=== PATIENT | male | born 1960 | race Caucasian/White ===

== ENCOUNTER 2021-11-24 15:25 | Inpatient (IN) | payer BC ==
[~2021-11-24] VITALS: Ht 185.4 cm; Wt 113.6 kg
[2021-11-24] MEDS ORDERED: ondansetron/PF 4mg/2ml inj IV ONE (15:45)
[2021-11-24] MEDS ORDERED: morphine 4 MG/ML inj SYRINge IV ONE (15:45)
[2021-11-24 16:17] LABS: BASOPHILS % (AUTO) 0.4 % (0-1); EOSINOPHILS # (AUTO) 0.1 X10'3 (0-0.9); EOSINOPHILS % (AUTO) 1.3 % (0-6); HEMATOCRIT 48.4 % (42.0-52.0); HEMOGLOBIN 16.6 g/dl (14.0-17.9); LYMPHOCYTES # (AUTO) 3.1 X10'3 (1.1-4.8); LYMPHOCYTES % (AUTO) 33.3 % (21-51); MEAN CORPUSCULAR HEMOGLOBIN 30.3 PG (27.0-31.0); MEAN CORPUSCULAR HGB CONC 34.3 g/dL (33.0-36.5); MEAN CORPUSCULAR VOLUME 88.3 FL (78-98); MEAN PLATELET VOLUME 9.1 FL (7.4-10.4); MONOCYTES # (AUTO) 0.9 X10'3 (0-0.9); MONOCYTES % (AUTO) 9.9 % (2-12); NEUTROPHILS # (AUTO) 5.1 X10'3 (1.8-7.7); NEUTROPHILS % (AUTO) 55.1 % (42-75); PLATELET COUNT 231 X10'3 (140-440); RED BLOOD COUNT 5.48 X10'6 (4.70-6.10); RED CELL DISTRIBUTION WIDTH 13.7 % (11.5-14.5); WHITE BLOOD COUNT 9.2 X10'3 (4.5-11.0)
[2021-11-24 16:25] LABS: D-DIMER 0.92 MG/L FEU (0-0.50)
[2021-11-24 16:28] LABS: ALANINE AMINOTRANSFERASE 170 U/L (12-78); ALBUMIN 4.1 G/DL (3.4-5.0); ALBUMIN/GLOBULIN RATIO 1.2 (1.1-1.5); ALKALINE PHOSPHATASE 122 IU/L (46-116); ANION GAP 14 (8-16); ASPARTATE AMINO TRANSFERASE 239 U/L (10-37); BILIRUBIN,TOTAL 1.7 MG/DL (0.1-1.0); BLOOD UREA NITROGEN 15 MG/DL (7-18); BUN/CREATININE RATIO 15.6 (5.4-32.0); CALCIUM 9.8 MG/DL (8.5-10.1); CHLORIDE 99 MMOL/L (99-107); CREATININE 0.96 MG/DL (0.60-1.10); GLUCOSE 210 MG/DL (70-104); POTASSIUM 3.5 MMOL/L (3.5-5.1); SODIUM 139 MMOL/L (135-145); TOTAL CARBON DIOXIDE 26.5 MMOL/L (24-32); TOTAL PROTEIN 7.5 G/DL (6.4-8.2); eGFR 79 ML/MIN
[2021-11-24 16:37] LABS: C-REACTIVE PROTEIN 0.49 MG/DL (0.0-0.5); MAGNESIUM 1.9 MG/DL (1.5-2.4)
[2021-11-24] MEDS ORDERED: ketorolac trometh. 30mg/ml inj. IV ONE (17:05)
[2021-11-24] MEDS ORDERED: NORMAL SALINE IV ONE (17:25)
[2021-11-24] MEDS ORDERED: SINCALIDE IV ONE (17:25)
[2021-11-24 17:38] LABS: LIPASE 127 U/L (73-393)
[2021-11-24] MEDS ORDERED: HYDROcodone/acetaminophen 10/325mg tab PO PRN (17:40)
[2021-11-24] MEDS ORDERED: ondansetron 4mg rapidly disintigrating tab PO PRN (17:40)
[2021-11-24] MEDS ORDERED: bisacodyl 10mg suppository rectal RC PRN (17:40)
[2021-11-24] MEDS ORDERED: acetaminophen 650mg rectal suppository RC PRN (17:40)
[2021-11-24] MEDS ORDERED: magnesium 2GM in 50ml NS 50 ML IV PRN (17:40)
[2021-11-24] MEDS ORDERED: HYDROmorphone/PF 0.2 MG/ML SYRINGE IV PRN (17:40)
[2021-11-24] MEDS ORDERED: magnesium 4gm in 100ml NS 100 ML IV PRN (17:40)
[2021-11-24] MEDS ORDERED: ondansetron/PF 4mg/2ml inj IV PRN (17:40)
[2021-11-24] MEDS ORDERED: potassium CL 10mEq/100ml bag 100 ML IV PRN (17:40)
[2021-11-24] MEDS ORDERED: mag hydrox/Alum hydrox/simeth 30ml oral suspension PO PRN (17:40)
[2021-11-24] MEDS ORDERED: HYDROcodone/acetaminophen 5mg/325mg tablet PO PRN (17:40)
[2021-11-24] MEDS ORDERED: POTASSIUM BICARB 20meq eff tab 20 MEQ TABLET.EFF PO PRN ×2 (17:40)
[2021-11-24] MEDS: normal saline 1000ml 1,000 ML IV SCH ×2 (17:40→23:19)
[2021-11-24] MEDS ORDERED: magnesium Cl slow-release 64mg tablet PO PRN (17:40)
[2021-11-24] MEDS ORDERED: magnesium hydroxide 30ml (MOM) UD suspension PO PRN (17:40)
[2021-11-24] MEDS ORDERED: HYDROmorphone inj. 0.5 MG/0.5 ML DISP.SYRIN IV PRN (17:40)
[2021-11-24] MEDS ORDERED: OMEP20CA16 PO (17:56)
[2021-11-24] MEDS ORDERED: DULA3PEN SQ (17:56)
[2021-11-24] MEDS ORDERED: LISI10TA27 PO (17:56)
[2021-11-24] MEDS ORDERED: DICL100G30 TOP (17:56)
[2021-11-24] MEDS ORDERED: ASPI81TA52 PO (17:56)
[2021-11-24] MEDS ORDERED: METF-436 PO (17:56)
[2021-11-24 18:07] LABS: APTT 21 SECONDS (22-32)
[2021-11-24] MEDS ORDERED: LORazepam 2 mg/ml vial IV PRN (18:25)
[2021-11-24] MEDS ORDERED: LORazepam 0.5 MG tablet PO PRN (18:25)
[2021-11-24] MEDS: pantoprazole 40MG/NS 100ML BAG 100 ML IV SCH (19:25)
[2021-11-24] MEDS ORDERED: normal saline 1000ml 1,000 ML IV ONE (19:35)
[2021-11-24] MEDS: K and/or MAG REPLACEMENT MC SCH (20:00)
[2021-11-24] MEDS: docusate sod 100mg capsule PO SCH (20:00)
--- NOTE | 2021-11-24 20:53 | NUR ---
Paged Dr Sepulveda. She called back and gave telephone order for hyperglycemia/hypoglycemia protocol.
[2021-11-24] MEDS ORDERED: DEXTROSE 15 GM of carb/4 tabs (each vial/BOTTLE has 4 tablets) PO PRN ×2 (20:55)
[2021-11-24] MEDS ORDERED: dextrose 50%-water 50ml dispensing syringe IV PRN ×2 (20:55)
[2021-11-24] MEDS ORDERED: glucagon, human recombinant 1mg kit SUBCUT PRN (20:55)
[2021-11-24] MEDS ORDERED: MESSAGE TO PHARMACY PO ONE (20:55)
[2021-11-24] MEDS ORDERED: temazepam 15mg capsule PO PRN (21:00)
[2021-11-24 21:09] LABS: HEMOGLOBIN A1C 7.8 % (4.5-6.2)
[2021-11-24] MEDS: insulin glargine (Lantus) pen - multi-dose SQ SCH (21:37)
--- NOTE | 2021-11-24 22:38 | NUR ---
Patient in room ED HALL13. I have received report from ZAHRA Hurt and had the opportunity to ask questions and assume patient care.
[2021-11-24] MEDS: piperacillin/tazo 3.375gm/50ml 50 ML IV SCH (23:20)
[2021-11-24 23:27] VITALS: BP 172/92
[2021-11-25 06:13] LABS: BASOPHILS % (AUTO) 0.1 % (0-1); EOSINOPHILS % (AUTO) 0.2 % (0-6); HEMATOCRIT 44.4 % (42.0-52.0); HEMOGLOBIN 15.1 g/dl (14.0-17.9); LYMPHOCYTES # (AUTO) 0.5 X10'3 (1.1-4.8); LYMPHOCYTES % (AUTO) 6.6 % (21-51); MEAN CORPUSCULAR HEMOGLOBIN 30.5 PG (27.0-31.0); MEAN CORPUSCULAR VOLUME 89.6 FL (78-98); MEAN PLATELET VOLUME 9.3 FL (7.4-10.4); MONOCYTES # (AUTO) 0.8 X10'3 (0-0.9); MONOCYTES % (AUTO) 10.1 % (2-12); NEUTROPHILS # (AUTO) 6.8 X10'3 (1.8-7.7); PLATELET COUNT 163 X10'3 (140-440); RED BLOOD COUNT 4.95 X10'6 (4.70-6.10); RED CELL DISTRIBUTION WIDTH 13.8 % (11.5-14.5); WHITE BLOOD COUNT 8.3 X10'3 (4.5-11.0)
[2021-11-25 06:14] LABS: APTT 25 SECONDS (22-32)
--- NOTE | 2021-11-25 06:19 | NUR ---
Problems reprioritized. Patient report given, questions answered & plan of care reviewed with ZAHRA Ly.
[2021-11-25 06:36] LABS: ALANINE AMINOTRANSFERASE 456 U/L (12-78); ALBUMIN 3.2 G/DL (3.4-5.0); ALKALINE PHOSPHATASE 131 IU/L (46-116); ANION GAP 11 (8-16); ASPARTATE AMINO TRANSFERASE 411 U/L (10-37); BILIRUBIN,TOTAL 4.2 MG/DL (0.1-1.0); BLOOD UREA NITROGEN 14 MG/DL (7-18); CALCIUM 8.9 MG/DL (8.5-10.1); CHLORIDE 105 MMOL/L (99-107); GLUCOSE 241 MG/DL (70-104); MAGNESIUM 1.9 MG/DL (1.5-2.4); POTASSIUM 4.1 MMOL/L (3.5-5.1); SODIUM 138 MMOL/L (135-145); TOTAL CARBON DIOXIDE 22.4 MMOL/L (24-32); eGFR 76 ML/MIN
[2021-11-25 06:37] LABS: ALBUMIN/GLOBULIN RATIO 1.1 (1.1-1.5); PHOSPHORUS 4.2 MG/DL (2.3-4.5); TOTAL PROTEIN 6.2 G/DL (6.4-8.2)
[2021-11-25] MEDS: pantoprazole 40MG/NS 100ML BAG 100 ML IV SCH (07:19)
[2021-11-25] MEDS: piperacillin/tazo 3.375gm/50ml 50 ML IV SCH ×2 (07:19→16:37)
[2021-11-25 07:20] VITALS: BP 136/77
[2021-11-25] MEDS: docusate sod 100mg capsule PO SCH ×2 (08:00→19:55)
[2021-11-25] MEDS: K and/or MAG REPLACEMENT MC SCH ×2 (08:00→20:00)
--- NOTE | 2021-11-25 08:06 | NUR ---
Discussed with patient the importance of the tests ordered today. He says that he cannot follow through with them. Discussed the PRN's that are available to help with his claustrophobia he stated that it will not help because he also has a bad back and he refuses to lay still for the duration of the procedure. Message from [employer] said that it needed to happen quickly because of the timing of injection would be another 24hrs. Discussed this with patient as well, he stated " i will not be here for another 24hrs"
[2021-11-25 10:36] VITALS: BP 139/85
--- NOTE | 2021-11-25 10:57 | NUR ---
Noted pt with T2DM, fairly well controlled with A1c 7.8%. Attempted visit with pt at bedside however pt unavailable. Written DM education with RD contact information placed in patient's chart. Will remain available. Addendum: 11/25/21 at [address] Amended: Links added.
[2021-11-25] MEDS: normal saline 1000ml 1,000 ML IV SCH ×2 (13:25→21:59)
[2021-11-25] MEDS: lisinopril 10 MG tablet PO SCH (14:00)
[2021-11-25] MEDS ORDERED: DULAGLUTIDE 3 MG SQ SCH (14:00)
[2021-11-25 14:20] VITALS: BP 154/84
--- NOTE | 2021-11-25 15:05 | NUR ---
PAGER ID: [phone] MESSAGE: [phone] Gavi Merlos: patient and his are insisting to speak with you. thank you!
--- NOTE | 2021-11-25 16:58 | NUR ---
t/c from [facility], she stated that the transfer has been denied because they do not have any staffed beds available and they do not have an open MRI.
--- NOTE | 2021-11-25 17:15 | NUR ---
PAGER ID: [phone] MESSAGE: [phone] Gavi Merlos: can patient have a diet order since he's not doing anything? thanks, tiburcio [phone]
--- NOTE | 2021-11-25 17:45 | NUR ---
Patient and notified of [facility] denial. They are now requesting to attempt the MRCP again tomorrow. Will notify
--- NOTE | 2021-11-25 17:49 | NUR ---
PAGER ID: [phone] MESSAGE: [phone] Gavi Merlos: Patient was denied transfer to [facility]. He states he would like to attempt the MRCP tomorrow. He will need a new medication ordered for the procedure tomorrow. thanks, tiburcio [phone]
[2021-11-25 18:00] VITALS: BP 150/90
--- NOTE | 2021-11-25 18:20 | NUR ---
Problems reprioritized. Patient report given, questions answered & plan of care reviewed with ZAHRA Hurt.
[2021-11-25] MEDS: insulin Lispro (HumaLOG) vial - multi-dose SQ SCH (19:52)
[2021-11-25] MEDS: metFORMIN 500mg tablet PO SCH (19:56)
[2021-11-25] MEDS: insulin glargine (Lantus) pen - multi-dose SQ SCH (21:44)
[2021-11-25 22:00] VITALS: BP 138/85
[2021-11-26] VITALS (12 sets, daily range): BP systolic 130–164; BP diastolic 70–120
[2021-11-26] MEDS: piperacillin/tazo 3.375gm/50ml 50 ML IV SCH ×3 (00:25→17:08)
[2021-11-26 06:35] LABS: BASOPHILS % (AUTO) 0.4 % (0-1); EOSINOPHILS # (AUTO) 0.2 X10'3 (0-0.9); HEMATOCRIT 42.3 % (42.0-52.0); HEMOGLOBIN 14.3 g/dl (14.0-17.9); LYMPHOCYTES % (AUTO) 19.7 % (21-51); MEAN CORPUSCULAR HEMOGLOBIN 30.6 PG (27.0-31.0); MEAN CORPUSCULAR HGB CONC 33.9 g/dL (33.0-36.5); MEAN CORPUSCULAR VOLUME 90.3 FL (78-98); MEAN PLATELET VOLUME 9.6 FL (7.4-10.4); MONOCYTES # (AUTO) 0.6 X10'3 (0-0.9); MONOCYTES % (AUTO) 10.6 % (2-12); NEUTROPHILS # (AUTO) 3.5 X10'3 (1.8-7.7); NEUTROPHILS % (AUTO) 66.3 % (42-75); PLATELET COUNT 156 X10'3 (140-440); RED BLOOD COUNT 4.69 X10'6 (4.70-6.10); RED CELL DISTRIBUTION WIDTH 13.9 % (11.5-14.5); WHITE BLOOD COUNT 5.2 X10'3 (4.5-11.0)
[2021-11-26 06:43] LABS: APTT 25 SECONDS (22-32)
[2021-11-26 06:52] LABS: ALANINE AMINOTRANSFERASE 417 U/L (12-78); ALKALINE PHOSPHATASE 130 IU/L (46-116); ANION GAP 10 (8-16); ASPARTATE AMINO TRANSFERASE 207 U/L (10-37); BILIRUBIN,TOTAL 4.6 MG/DL (0.1-1.0); BLOOD UREA NITROGEN 11 MG/DL (7-18); BUN/CREATININE RATIO 13.8 (5.4-32.0); CALCIUM 8.6 MG/DL (8.5-10.1); CHLORIDE 106 MMOL/L (99-107); GLUCOSE 161 MG/DL (70-104); PHOSPHORUS 3.5 MG/DL (2.3-4.5); POTASSIUM 3.7 MMOL/L (3.5-5.1); SODIUM 139 MMOL/L (135-145); TOTAL CARBON DIOXIDE 22.7 MMOL/L (24-32); eGFR > 90 ML/MIN
--- NOTE | 2021-11-26 06:57 | NUR ---
Problems reprioritized. Patient report given, questions answered & plan of care reviewed with KODAK Linn RN.
[2021-11-26] MEDS ORDERED: pantoprazole 40mg Tablet.DR PO SCH ×2 (07:30→08:00)
[2021-11-26] MEDS: metFORMIN 500mg tablet PO SCH ×2 (08:00→19:30)
[2021-11-26] MEDS: aspirin 81mg, enteric-coated 1 TAB TABLET.DR PO SCH (08:00)
[2021-11-26] MEDS: docusate sod 100mg capsule PO SCH ×2 (08:00→19:30)
[2021-11-26] MEDS: Diclofenac Sodium 1 APPLIC TOP SCH (08:00)
[2021-11-26] MEDS: K and/or MAG REPLACEMENT MC SCH ×2 (08:00→20:00)
[2021-11-26] MEDS: lisinopril 10 MG tablet PO SCH (08:10)
[2021-11-26] MEDS: normal saline 1000ml 1,000 ML IV SCH ×2 (08:10→21:36)
[2021-11-26] MEDS ORDERED: diazepam inj 5 MG/ML inj. IV PRN (08:55)
--- NOTE | 2021-11-26 10:15 | NUR ---
Dr Sepulveda here confirmed pt to have ERCP instead of MRCP. Called GI lab back , pt now to GI lab via WC.
[2021-11-26] MEDS ORDERED: fentaNYL/PF 50MCG/1 ML 2ML syringe ONE ×4 (10:22→12:29)
[2021-11-26] MEDS ORDERED: diphenhydrAMINE 50 mg/ml inj ONE (10:22)
[2021-11-26] MEDS ORDERED: MIDAZolam 1 MG/ML 5ML VIAL ONE ×2 (10:22→12:29)
[2021-11-26] MEDS ORDERED: LIDOcaine Viscous 15ml cup ONE (10:22)
[2021-11-26] MEDS ORDERED: iohexol 300 MG/1 ML 50ml polymer ONE (10:23)
[2021-11-26] MEDS ORDERED: glucagon, human recombinant 1mg kit ONE (10:23)
[2021-11-26] MEDS ORDERED: levoFLOXACIN-Levaquin 500mg/D5 100 ML IV ONE (11:18)
[2021-11-26] MEDS ORDERED: epiNEPHrine 0.1mg/ml 10ml syringe ONE ×2 (12:41→14:31)
[2021-11-26 13:22] LABS: BASOPHILS % (AUTO) 0.3 % (0-1); EOSINOPHILS % (AUTO) 0.8 % (0-6); HEMATOCRIT 42.7 % (42.0-52.0); HEMOGLOBIN 14.4 g/dl (14.0-17.9); LYMPHOCYTES # (AUTO) 0.9 X10'3 (1.1-4.8); MEAN CORPUSCULAR HEMOGLOBIN 30.3 PG (27.0-31.0); MEAN CORPUSCULAR HGB CONC 33.7 g/dL (33.0-36.5); MEAN CORPUSCULAR VOLUME 89.9 FL (78-98); MEAN PLATELET VOLUME 8.7 FL (7.4-10.4); MONOCYTES # (AUTO) 0.7 X10'3 (0-0.9); MONOCYTES % (AUTO) 10.5 % (2-12); NEUTROPHILS # (AUTO) 4.6 X10'3 (1.8-7.7); NEUTROPHILS % (AUTO) 73.4 % (42-75); PLATELET COUNT 163 X10'3 (140-440); RED BLOOD COUNT 4.75 X10'6 (4.70-6.10); RED CELL DISTRIBUTION WIDTH 13.9 % (11.5-14.5); WHITE BLOOD COUNT 6.2 X10'3 (4.5-11.0)
--- NOTE | 2021-11-26 16:45 | NUR ---
Pt up to bathroom c/o abd pain and began vomiting watery blood on floor. Paged Dr Sepulveda and phoned Dr Araujo with info. VSS. last CBC stable, Labs, blood, and protonix drip ordered. Dr Araujo indicated may not have suctioned all the stomack contents during procedure. Continue to observe for randy red bleeding and monitor CBC's. Spouse at bedside, discussed all with both.
[2021-11-26 17:43] LABS: BASOPHILS % (AUTO) 0.3 % (0-1); EOSINOPHILS % (AUTO) 0.5 % (0-6); HEMATOCRIT 44.8 % (42.0-52.0); HEMOGLOBIN 15.2 g/dl (14.0-17.9); LYMPHOCYTES # (AUTO) 0.8 X10'3 (1.1-4.8); LYMPHOCYTES % (AUTO) 7.3 % (21-51); MEAN CORPUSCULAR HEMOGLOBIN 30.8 PG (27.0-31.0); MEAN CORPUSCULAR VOLUME 90.6 FL (78-98); MEAN PLATELET VOLUME 9.1 FL (7.4-10.4); MONOCYTES # (AUTO) 1.1 X10'3 (0-0.9); MONOCYTES % (AUTO) 10.5 % (2-12); NEUTROPHILS # (AUTO) 8.5 X10'3 (1.8-7.7); NEUTROPHILS % (AUTO) 81.4 % (42-75); PLATELET COUNT 181 X10'3 (140-440); RED BLOOD COUNT 4.95 X10'6 (4.70-6.10); RED CELL DISTRIBUTION WIDTH 13.9 % (11.5-14.5); WHITE BLOOD COUNT 10.5 X10'3 (4.5-11.0)
--- NOTE | 2021-11-26 18:42 | NUR ---
Problems reprioritized. Patient report given, questions answered & plan of care reviewed with Kevan SWEENEY.
--- NOTE | 2021-11-26 19:21 | NUR ---
Patient in room ORTHO 4023. I have received report from ZAHRA España and had the opportunity to ask questions and assume patient care.
[2021-11-26] MEDS: insulin Lispro (HumaLOG) vial - multi-dose SQ SCH (19:34)
[2021-11-26] MEDS: insulin glargine (Lantus) pen - multi-dose SQ SCH (21:34)
[2021-11-26] MEDS: pantoprazole 40MG/NS 100ML BAG 100 ML IV SCH (21:37)
[2021-11-26 23:35] LABS: BASOPHILS % (AUTO) 0.3 % (0-1); EOSINOPHILS % (AUTO) 0.2 % (0-6); HEMATOCRIT 39.9 % (42.0-52.0); HEMOGLOBIN 13.4 g/dl (14.0-17.9); LYMPHOCYTES # (AUTO) 0.9 X10'3 (1.1-4.8); LYMPHOCYTES % (AUTO) 13.3 % (21-51); MEAN CORPUSCULAR HEMOGLOBIN 30.3 PG (27.0-31.0); MEAN CORPUSCULAR HGB CONC 33.6 g/dL (33.0-36.5); MEAN CORPUSCULAR VOLUME 90.2 FL (78-98); MEAN PLATELET VOLUME 9.3 FL (7.4-10.4); MONOCYTES # (AUTO) 0.7 X10'3 (0-0.9); MONOCYTES % (AUTO) 10.8 % (2-12); NEUTROPHILS # (AUTO) 5.2 X10'3 (1.8-7.7); NEUTROPHILS % (AUTO) 75.4 % (42-75); PLATELET COUNT 156 X10'3 (140-440); RED BLOOD COUNT 4.42 X10'6 (4.70-6.10); RED CELL DISTRIBUTION WIDTH 13.8 % (11.5-14.5); WHITE BLOOD COUNT 6.9 X10'3 (4.5-11.0)
[2021-11-27] VITALS (17 sets, daily range): BP systolic 126–169; BP diastolic 69–100
[2021-11-27] MEDS: piperacillin/tazo 3.375gm/50ml 50 ML IV SCH ×4 (02:07→23:21)
[2021-11-27] MEDS: pantoprazole 40MG/NS 100ML BAG 100 ML IV SCH ×5 (02:15→21:30)
[2021-11-27] MEDS: normal saline 1000ml 1,000 ML IV SCH ×2 (05:40→15:40)
--- NOTE | 2021-11-27 06:26 | NUR ---
Problems reprioritized. Patient report given, questions answered & plan of care reviewed with ZAHRA Carbajal.
[2021-11-27 07:59] LABS: APTT 24 SECONDS (22-32); BASOPHILS % (AUTO) 0.2 % (0-1); EOSINOPHILS # (AUTO) 0.1 X10'3 (0-0.9); EOSINOPHILS % (AUTO) 0.9 % (0-6); HEMATOCRIT 41.8 % (42.0-52.0); HEMOGLOBIN 14.1 g/dl (14.0-17.9); LYMPHOCYTES % (AUTO) 12.7 % (21-51); MEAN CORPUSCULAR HEMOGLOBIN 30.6 PG (27.0-31.0); MEAN CORPUSCULAR HGB CONC 33.7 g/dL (33.0-36.5); MEAN CORPUSCULAR VOLUME 90.7 FL (78-98); MEAN PLATELET VOLUME 8.8 FL (7.4-10.4); MONOCYTES # (AUTO) 1.1 X10'3 (0-0.9); NEUTROPHILS # (AUTO) 5.8 X10'3 (1.8-7.7); NEUTROPHILS % (AUTO) 72.2 % (42-75); PLATELET COUNT 166 X10'3 (140-440); RED BLOOD COUNT 4.61 X10'6 (4.70-6.10); RED CELL DISTRIBUTION WIDTH 13.7 % (11.5-14.5); WHITE BLOOD COUNT 8.1 X10'3 (4.5-11.0)
[2021-11-27] MEDS: metFORMIN 500mg tablet PO SCH ×2 (08:00→20:05)
[2021-11-27] MEDS: K and/or MAG REPLACEMENT MC SCH ×2 (08:00→19:47)
[2021-11-27] MEDS: Diclofenac Sodium 1 APPLIC TOP SCH (08:00)
[2021-11-27] MEDS: aspirin 81mg, enteric-coated 1 TAB TABLET.DR PO SCH (08:00)
[2021-11-27] MEDS: lisinopril 10 MG tablet PO SCH (08:00)
[2021-11-27] MEDS: docusate sod 100mg capsule PO SCH ×2 (08:00→20:05)
[2021-11-27 08:13] LABS: ALANINE AMINOTRANSFERASE 405 U/L (12-78); ALBUMIN 2.9 G/DL (3.4-5.0); ANION GAP 13 (8-16); ASPARTATE AMINO TRANSFERASE 170 U/L (10-37); BILIRUBIN,TOTAL 4.7 MG/DL (0.1-1.0); BLOOD UREA NITROGEN 14 MG/DL (7-18); BUN/CREATININE RATIO 15.2 (5.4-32.0); CALCIUM 8.8 MG/DL (8.5-10.1); CHLORIDE 108 MMOL/L (99-107); CREATININE 0.92 MG/DL (0.60-1.10); GLUCOSE 184 MG/DL (70-104); MAGNESIUM 1.8 MG/DL (1.5-2.4); POTASSIUM 3.7 MMOL/L (3.5-5.1); SODIUM 142 MMOL/L (135-145); TOTAL CARBON DIOXIDE 21.3 MMOL/L (24-32); eGFR 83 ML/MIN
[2021-11-27 08:14] LABS: ALBUMIN/GLOBULIN RATIO 0.9 (1.1-1.5); TOTAL PROTEIN 6.1 G/DL (6.4-8.2)
[2021-11-27 08:28] LABS: ALKALINE PHOSPHATASE 140 IU/L (46-116)
[2021-11-27] MEDS ORDERED: INDOCYANINE GREEN 25 MG/10 ML VIAL IV ONE (09:05)
[2021-11-27] MEDS: insulin Lispro (HumaLOG) vial - multi-dose SQ SCH ×4 (09:25→21:33)
[2021-11-27] MEDS ORDERED: LIDOcaine 1% 30ml preserv. free vial ONE (09:34)
[2021-11-27] MEDS ORDERED: BUPIVAcaine/PF 2.5mg/ml (0.25%) 10ml vial ONE (09:35)
[2021-11-27] MEDS ORDERED: midazolam 1 mg/ML 2ml injection ONE (09:48)
[2021-11-27] MEDS ORDERED: fentaNYL /PF 50mcg/ml 5ml ampule ONE (09:48)
[2021-11-27] MEDS ORDERED: sevoflurane 250ml liquid IH ONE (10:24)
[2021-11-27] MEDS ORDERED: morphine 2 MG/ML inj. syringe IV PRN (10:35)
[2021-11-27] MEDS ORDERED: acetaminophen 1,000mg/100ml IV 100 ML IV PRN (10:35)
[2021-11-27] MEDS ORDERED: labetalol 20mg/4ml (5mg/ml) syringe IV PRN (10:35)
[2021-11-27] MEDS ORDERED: hydrALAZINE 20mg/ml inj. IV PRN (10:35)
[2021-11-27] MEDS ORDERED: proCHLORperazine 10 MG/2 ml inj IV PRN (10:35)
[2021-11-27] MEDS ORDERED: meperidine/PF 25mg/ml syringe IV PRN ×3 (10:35)
[2021-11-27] MEDS ORDERED: ringers solution, lacted 1,000 ML IV SCH (10:35)
[2021-11-27] MEDS ORDERED: morphine 4 MG/ML inj SYRINge IV PRN (10:35)
[2021-11-27] MEDS ORDERED: ketorolac trometh. 30mg/ml inj. IV ONE (10:35)
[2021-11-27] MEDS ORDERED: ondansetron/PF 4mg/2ml inj IV PRN (10:35)
[2021-11-27] MEDS ORDERED: dexamethasone sod phosphate 4mg/ml inj. ONE (10:56)
[2021-11-27] MEDS ORDERED: ondansetron/PF 4mg/2ml inj ONE (10:56)
[2021-11-27] MEDS ORDERED: ceFAZolin 1000mg inj ONE ×2 (10:56)
[2021-11-27] MEDS ORDERED: rocuronium 10mg/ml inj IV ONE (10:56)
[2021-11-27] MEDS ORDERED: propofol inj 20 ML IV ONE (10:57)
[2021-11-27] MEDS ORDERED: LIDOcaine 2% (20mg/ml) 5ml vial ONE (10:57)
[2021-11-27] MEDS ORDERED: glycopyrrolate 0.2mg/ml inj ONE (11:54)
[2021-11-27] MEDS ORDERED: sugammadex 200mg/2ml injection IV ONE (11:54)
[2021-11-27] MEDS ORDERED: neostigmine methylsulfate 1 MG/ML 10ml vial ONE (11:54)
--- NOTE | 2021-11-27 12:01 | NUR ---
Received from OR via , accompanied by Anesthesiologist DR BENITES and report given by Anesthesiolgist. PT IS AWAKE, MOVING EXT X 4, SKIN WARM AND PINK, ABD HAS 4 BA'S WITH STERI STRIPS CD, SCD'S, PIV RIGHT FA 18G WITH PROTONIX GTT AND NS 100MLS/HR. MINIMAL PAIN TREATED WITH IV TYLENOL AND TORADOL.
[2021-11-27] MEDS ORDERED: naloxone 0.4 mg/ml inj IV PRN (12:05)
[2021-11-27] MEDS ORDERED: HYDROcodone/acetaminophen 5mg/325mg tablet PO PRN (12:05)
--- NOTE | 2021-11-27 12:36 | NUR ---
Report called to receiving nurse. Transferred via [facility] . Special Issues communicated to receiving nurse YURIY SWEENEY. PT IS AWAKE, ALERT AND ORIENTED, MOVING EXT X 4, VSS, PIV PATENT, BA'S CD, SCD'S, MINIMAL TO NO C/O PAIN, PT MEETS DISCHARGE CRITERIA.
[2021-11-27 13:43] LABS: BASOPHILS % (AUTO) 0.2 % (0-1); EOSINOPHILS % (AUTO) 0.1 % (0-6); HEMATOCRIT 39.3 % (42.0-52.0); HEMOGLOBIN 13.4 g/dl (14.0-17.9); LYMPHOCYTES # (AUTO) 0.4 X10'3 (1.1-4.8); LYMPHOCYTES % (AUTO) 5.8 % (21-51); MEAN CORPUSCULAR HEMOGLOBIN 30.3 PG (27.0-31.0); MEAN PLATELET VOLUME 9.3 FL (7.4-10.4); MONOCYTES # (AUTO) 0.3 X10'3 (0-0.9); MONOCYTES % (AUTO) 4.5 % (2-12); NEUTROPHILS # (AUTO) 5.9 X10'3 (1.8-7.7); NEUTROPHILS % (AUTO) 89.4 % (42-75); PLATELET COUNT 165 X10'3 (140-440); RED BLOOD COUNT 4.42 X10'6 (4.70-6.10); RED CELL DISTRIBUTION WIDTH 13.9 % (11.5-14.5); WHITE BLOOD COUNT 6.6 X10'3 (4.5-11.0)
[2021-11-27] MEDS: HYDROcodone/acetaminophen 10/325mg tab PO PRN ×2 (17:05→23:20)
[2021-11-27 17:19] LABS: BASOPHILS % (AUTO) 0.1 % (0-1); EOSINOPHILS % (AUTO) 0 % (0-6); HEMOGLOBIN 13.4 g/dl (14.0-17.9); LYMPHOCYTES # (AUTO) 0.6 X10'3 (1.1-4.8); MEAN CORPUSCULAR HEMOGLOBIN 30.2 PG (27.0-31.0); MEAN CORPUSCULAR HGB CONC 33.5 g/dL (33.0-36.5); MEAN PLATELET VOLUME 9.1 FL (7.4-10.4); MONOCYTES # (AUTO) 0.2 X10'3 (0-0.9); MONOCYTES % (AUTO) 3.4 % (2-12); NEUTROPHILS # (AUTO) 5.6 X10'3 (1.8-7.7); NEUTROPHILS % (AUTO) 87.5 % (42-75); PLATELET COUNT 174 X10'3 (140-440); RED BLOOD COUNT 4.44 X10'6 (4.70-6.10); RED CELL DISTRIBUTION WIDTH 14.2 % (11.5-14.5); WHITE BLOOD COUNT 6.4 X10'3 (4.5-11.0)
--- NOTE | 2021-11-27 18:32 | NUR ---
Gave report to Bambi SWEENEY.
[2021-11-27] MEDS: heparin, porcine 5000 units/ml vial SQ SCH (20:05)
[2021-11-27] MEDS: insulin glargine (Lantus) pen - multi-dose SQ SCH (21:33)
[2021-11-27 23:41] LABS: BASOPHILS % (AUTO) 0.2 % (0-1); EOSINOPHILS % (AUTO) 0 % (0-6); HEMATOCRIT 38.8 % (42.0-52.0); HEMOGLOBIN 13.1 g/dl (14.0-17.9); LYMPHOCYTES % (AUTO) 12.8 % (21-51); MEAN CORPUSCULAR HEMOGLOBIN 30.3 PG (27.0-31.0); MEAN CORPUSCULAR HGB CONC 33.8 g/dL (33.0-36.5); MEAN CORPUSCULAR VOLUME 89.6 FL (78-98); MEAN PLATELET VOLUME 8.9 FL (7.4-10.4); MONOCYTES # (AUTO) 0.7 X10'3 (0-0.9); MONOCYTES % (AUTO) 9.5 % (2-12); NEUTROPHILS # (AUTO) 5.9 X10'3 (1.8-7.7); NEUTROPHILS % (AUTO) 77.5 % (42-75); PLATELET COUNT 185 X10'3 (140-440); RED BLOOD COUNT 4.33 X10'6 (4.70-6.10); RED CELL DISTRIBUTION WIDTH 14.1 % (11.5-14.5); WHITE BLOOD COUNT 7.6 X10'3 (4.5-11.0)
[2021-11-28] MEDS: pantoprazole 40MG/NS 100ML BAG 100 ML IV SCH (02:44)
[2021-11-28] MEDS: HYDROcodone/acetaminophen 10/325mg tab PO PRN ×2 (03:36→09:08)
[2021-11-28 05:34] LABS: BASOPHILS % (AUTO) 0.2 % (0-1); EOSINOPHILS % (AUTO) 0.2 % (0-6); HEMATOCRIT 35.9 % (42.0-52.0); HEMOGLOBIN 12.3 g/dl (14.0-17.9); LYMPHOCYTES # (AUTO) 1.4 X10'3 (1.1-4.8); LYMPHOCYTES % (AUTO) 20.9 % (21-51); MEAN CORPUSCULAR HEMOGLOBIN 30.3 PG (27.0-31.0); MEAN CORPUSCULAR HGB CONC 34.1 g/dL (33.0-36.5); MEAN CORPUSCULAR VOLUME 88.7 FL (78-98); MEAN PLATELET VOLUME 9.5 FL (7.4-10.4); MONOCYTES # (AUTO) 0.8 X10'3 (0-0.9); MONOCYTES % (AUTO) 10.8 % (2-12); NEUTROPHILS # (AUTO) 4.7 X10'3 (1.8-7.7); NEUTROPHILS % (AUTO) 67.9 % (42-75); PLATELET COUNT 176 X10'3 (140-440); RED BLOOD COUNT 4.05 X10'6 (4.70-6.10); RED CELL DISTRIBUTION WIDTH 13.8 % (11.5-14.5); WHITE BLOOD COUNT 6.9 X10'3 (4.5-11.0)
[2021-11-28 05:44] LABS: ALANINE AMINOTRANSFERASE 272 U/L (12-78); ALBUMIN 2.7 G/DL (3.4-5.0); ALBUMIN/GLOBULIN RATIO 0.9 (1.1-1.5); ALKALINE PHOSPHATASE 109 IU/L (46-116); ANION GAP 11 (8-16); ASPARTATE AMINO TRANSFERASE 74 U/L (10-37); BLOOD UREA NITROGEN 16 MG/DL (7-18); BUN/CREATININE RATIO 18.6 (5.4-32.0); CALCIUM 8.4 MG/DL (8.5-10.1); CHLORIDE 107 MMOL/L (99-107); CREATININE 0.86 MG/DL (0.60-1.10); GLUCOSE 135 MG/DL (70-104); MAGNESIUM 1.8 MG/DL (1.5-2.4); PHOSPHORUS 4.7 MG/DL (2.3-4.5); POTASSIUM 3.4 MMOL/L (3.5-5.1); SODIUM 140 MMOL/L (135-145); TOTAL CARBON DIOXIDE 21.9 MMOL/L (24-32); TOTAL PROTEIN 5.7 G/DL (6.4-8.2); eGFR 90 ML/MIN
[2021-11-28] MEDS: normal saline 1000ml 1,000 ML IV SCH (05:46)
[2021-11-28 06:00] VITALS: BP 137/79
--- NOTE | 2021-11-28 07:32 | NUR ---
Patient in room ORTHO 4013. I have received report from Bambi SWEENEY and had the opportunity to ask questions and assume patient care.
[2021-11-28] MEDS: K and/or MAG REPLACEMENT MC SCH (08:00)
[2021-11-28] MEDS: lisinopril 10 MG tablet PO SCH (08:59)
[2021-11-28] MEDS: heparin, porcine 5000 units/ml vial SQ SCH (08:59)
[2021-11-28] MEDS: metFORMIN 500mg tablet PO SCH (08:59)
[2021-11-28] MEDS: docusate sod 100mg capsule PO SCH (08:59)
[2021-11-28] MEDS: aspirin 81mg, enteric-coated 1 TAB TABLET.DR PO SCH (08:59)
[2021-11-28 10:00] VITALS: BP 154/99
--- NOTE | 2021-11-28 10:30 | NUR ---
Doctor Elroy edward see patient. Addendum: 11/28/21 at 1204 by Kristie Wilhelm RN Amended: Links added.
[2021-11-28 10:47] LABS: BASOPHILS % (AUTO) 0.5 % (0-1); EOSINOPHILS % (AUTO) 0.4 % (0-6); HEMATOCRIT 37.7 % (42.0-52.0); HEMOGLOBIN 12.8 g/dl (14.0-17.9); LYMPHOCYTES % (AUTO) 24.3 % (21-51); MEAN CORPUSCULAR HEMOGLOBIN 30.2 PG (27.0-31.0); MEAN CORPUSCULAR VOLUME 88.8 FL (78-98); MEAN PLATELET VOLUME 8.5 FL (7.4-10.4); MONOCYTES # (AUTO) 0.9 X10'3 (0-0.9); MONOCYTES % (AUTO) 11.2 % (2-12); NEUTROPHILS # (AUTO) 5.2 X10'3 (1.8-7.7); NEUTROPHILS % (AUTO) 63.6 % (42-75); PLATELET COUNT 186 X10'3 (140-440); RED BLOOD COUNT 4.25 X10'6 (4.70-6.10); RED CELL DISTRIBUTION WIDTH 13.6 % (11.5-14.5); WHITE BLOOD COUNT 8.2 X10'3 (4.5-11.0)
[2021-11-28] MEDS ORDERED: AMOX-117 PO (11:22)
[2021-11-28] MEDS ORDERED: HYDR-3964 PO (11:22)
== END 2021-11-28 11:55 | disposition home or self-care (01) | DRG 419 ==
LOC: ER 15:26 → ED HOLD 17:43 → ORTHO 4S 22:52 → PACU 11-27 10:57 → ORTHO 4S 11-27 13:04
PROVIDERS: ADMIT Family Medicine; ATTEND Family Medicine
PROC: 0F798ZZ Dilation of Common Bile Duct, Via Natural or Artificial Opening Endoscopic (ICD-10-PCS; 2021-11-26)
PROC: 8E0W4CZ Robotic Assisted Procedure of Trunk Region, Percutaneous Endoscopic Approach (ICD-10-PCS; 2021-11-27)
PROC: BF532Z0 Other Imaging of Gallbladder and Bile Ducts using Fluorescing Agent, Intraoperative (ICD-10-PCS; 2021-11-27)
PROC: 0FT44ZZ Resection of Gallbladder, Percutaneous Endoscopic Approach (ICD-10-PCS; principal; 2021-11-27 10:31)
DX: K80.43 Calculus of bile duct with acute cholecystitis with obstruction (principal); E11.9 Type 2 diabetes mellitus without complications; E78.5 Hyperlipidemia, unspecified; K42.9 Umbilical hernia without obstruction or gangrene; F40.240 Claustrophobia; E66.9 Obesity, unspecified; Z20.822 Contact with and (suspected) exposure to COVID-19; F41.9 Anxiety disorder, unspecified; I10 Essential (primary) hypertension; K83.8 Other specified diseases of biliary tract; F17.200 Nicotine dependence, unspecified, uncomplicated; K21.9 Gastro-esophageal reflux disease without esophagitis; R74.01 Elevation of levels of liver transaminase levels; R79.89 Other specified abnormal findings of blood chemistry; Z68.33 Body mass index [BMI] 33.0-33.9, adult; Z71.6 Tobacco abuse counseling; Z79.899 Other long term (current) drug therapy; Z79.82 Long term (current) use of aspirin
CPT/HCPCS: 43255; 43262; 43274; 93306; 96374; 96375; 99285; Z7506; Z7508; 36415; 71045; 76700; 80053; 82948; 83036; 83605; 83690; 83735; 83880; 84100; 84132; 84484; 85025; 85379; 85610; 85730; 86140; 86885; 86900; 86901; 86920; 87040; 87081; 87635; 99152; 99153; A4215; A4615; A4618; A4620; A7000; A9537; C1769; C2625; C9113; G0378; J0131; J0171; J0690; J1100; J1170; J1200; J1610; J1644; J1815; J1885; J1956; J2250; J2270; J2405; J2543; J2704; J2710; J3010; J3490; J7030; J7120; Q9967